=== PATIENT | female | born 1970 | race Caucasian/White ===

== ENCOUNTER → 2016-08-11 | Outpatient (CLI) | payer OTHER | LOC: BMCIMAGING 09:10 | PROVIDERS: ATTEND Obstetrics & Gynecology | DX: Z12.31 Encounter for screening mammogram for malignant neoplasm of breast (principal); D25.2 Subserosal leiomyoma of uterus; Z97.5 Presence of (intrauterine) contraceptive device | CPT/HCPCS: G0202 ==

== ENCOUNTER 2018-07-26 08:17 | Observation (INO) | payer OTHER ==
--- NOTE | 2018-07-25 18:27 | GHP ---
[f rep st] PREOP HISTORY AND PHYSICAL DATE OF ADMISSION: 07/26/2018 History and physical for tomorrow, 07/26/2018. Janell Muñoz is a 47-year-old female who presents with left knee arthritis. She has tricompartment oste oarthritis, most severe in the lateral compartment which is [id number]. In summary, she has used o ral antiinflammatory meds, she has done extensive physical therapy, she has had a steroid injection a s well as viscosupplementation series. She has used an kiln car unloader brace, she has had a knee arthroscop y and chondroplasty and debridement. Currently she has significant limitations of activities, she obrien s pain and swelling with weightbearing. She has some limitation of motion and gait abnormality. She has significant radiographic changes and this is confirmed with an MRI study as well. She has bone- to-bone in the lateral compartment and in the medial and patellofemoral compartments. Has degenerati ve changes as well. She knows that she is relatively young for knee replacement, but she has really exhausted all other measures of management to the point where she needs a reconstructive procedure. She wishes to proceed with a left total knee arthroplasty. PAST MEDICAL HISTORY: Significant for no medical problems. Orthopedically, she has had a left hip r eplacement. She has had a right shoulder rotator cuff repair. She has had a right knee ACL reconstr uction and a left knee arthroscopy. ALLERGIES: She has no known drug allergies. MEDICATIONS: She uses ibuprofen on a p.r.n. basis and Qsymia 3.75 mg-23 mg extended release. She is a nonsmoker. REVIEW OF SYSTEMS: Negative for cardiopulmonary disease. PHYSICAL EXAMINATION: GENERAL: Janell Muñoz is a well-developed, well-nourished female in no apparent distress. HEAD AND NECK: Normocephalic, atraumatic. CHEST: Clear. CARDIOVASCULAR: Regular rate and rhythm. ABDOMEN: Soft. NEUROLOGIC: She is alert and oriented x3. MUSCULOSKELETAL: Her left knee shows increased valgus alignment compared to the opposite side, and she lacks a couple of degree s of full extension. She has 120 degrees of flexion. She has a small effusion and she has tendernes s along the lateral patellar facet and the lateral joint line, ligamentously stable. IMPRESSION: Left knee osteoarthritis. PLAN: Left total knee arthroplasty. The benefits and risks of surgery have been reviewed. She unde rstands that the risks include infection, damage to blood vessel or nerve, failure or loosening of co mponents, blood clot in the leg or lungs, bleeding, and need for transfusion, and we have reviewed pa in management options as well as the rigorous nature of the rehabilitation. She has signed a consent form and wishes to proceed. At a relatively young age for total knee replacement, she understands t hat she has a higher risk for needing a revision of the joint in her lifetime. /[id number]/MODL
[~2018-07-26 08:17] MED LIST: POVIDONE-IODINE 20 ML in SODIUM CL IRRIG SOLUTION 500 ML IRR ONE; ROPIVACAINE 0.2% 80 MG, EPINEPHrine 0.2 MG, KETOROLAC TROMETHAMINE 30 MG in SYRINGE 0 ML IU ONE; TRANEXAMIC ACID 1,000 MG in NS 100 ML IV ONE; ceFAZolin 1 GM/5 ML SYR ONE
[2018-07-26] MEDS ORDERED: ACETAMINOPHEN 325 MG TAB PO ONE (08:34)
[2018-07-26] MEDS ORDERED: ONDANSETRON 4 MG/2 ML VIAL IVP ONE (08:34)
[2018-07-26] MEDS ORDERED: GABAPENTIN 300 MG CAP PO ONE (08:34)
[2018-07-26] MEDS ORDERED: ceFAZolin 2 GM/DEXTROSE 100 ML IV ONE (08:34)
[2018-07-26] MEDS ORDERED: DEXAMETHASONE 4 MG/ML VIAL IVP ONE (08:34)
[2018-07-26] MEDS ORDERED: FAMOTIDINE 20 MG TAB PO ONE (08:34)
[2018-07-26] MEDS ORDERED: MIDAZOLAM 2 MG/2 ML VIAL IVP ONE ×2 (08:37→09:39)
[2018-07-26] MEDS ORDERED: LR 1,000 ML IV ONE (08:38)
--- NOTE | 2018-07-26 09:39 | PDANEPAE ---
ANE Past Medical History - Cardiovascular History Hx Hypertension: No Hx Arrhythmias: No Hx Chest Pain: No Hx Coronary Artery / Peripheral Vascular Disease: No Hx CHF / Valvular Disease: No Hx Palpitations: No - Pulmonary History Hx COPD: No Hx Asthma/Reactive Airway Disease: No Hx Recent Upper Respiratory Infection: No Hx Oxygen in Use at Home: No Hx Sleep Apnea: No Sleep Apnea Screening Result - Last Documented: Negative - Neurologic History Hx Cerebrovascular Accident: No Hx Seizures: No Hx Dementia: No - Endocrine History Hx Diabetes: No Hypothyroid: No Hyperthyroid: No Obesity: no - Renal History Hx Renal Disorders: No - Liver History Hx Hepatic Disorders: No - Neurological & Psychiatric Hx Hx Neurological and Psychiatric Disorders: No - Cancer History Hx Cancer: No - Congenital Disorder History Hx Congenital Disorders: No - GI History GERD: no Hx Gastrointestinal Disorders: No - Other Health History Other Health History: NONE - Chronic Pain History Chronic Pain: Yes (RIGHT HIP) - Surgical History Prior Surgeries: KNEE SCOPE ACL RECONSTRUCTION. ROTOCUFF RECONSTRUCTION. L MAGO ANE Review of Systems Review of Systems: - Exercise capacity Exercise capacity: >=4 METS, limited by disability METS (RN): 5 METS ANE Patient History - Allergies Allergies/Adverse Reactions: No Known Allergies Allergy (Verified 07/05/18 11:49) - Home Medications Home Medications: Glucosamine/Chondroitin [Glucosamine/Chondroitin (*)] 1 each PO DAILY 07/05/18 [ Last Taken 07/19/18] Herbals/Supplements -Info Only 1 ea PO DAILY 07/05/18 [Last Taken 07/19/18] Ibuprofen [Motrin (*)] 200 mg PO DAILY PRN 07/05/18 [Last Taken 07/19/18] [place]-3 Fatty Acids [Fish Oil 1000 mg (*)] 1,000 mg PO DAILY 07/05/18 [Last Taken 07/25/18] Phentermine/Topiramate [Qsymia 3.75 mg-23 mg Capsule] 1 each PO DAILY 07/05/18 [ Last Taken 07/21/18] - NPO status NPO Since - Liquids (Date): 07/26/18 NPO Since - Liquids (Time): 00:01 NPO Since - Solids (Date): 07/26/18 NPO Since - Solids (Time): 00:01 - Anes Hx Anes Hx: no prior problems - Smoking Hx Smoking Status: Never smoked - Alcohol Use Alcohol Use: Occasionally - Family Anes Hx Family Anes Hx: neg - N/A Family Hx Anesthesia Complications: NONE ANE Labs/Vital Signs - Vital Signs Blood Pressure: 124/68 Heart Rate: 52 Respiratory Rate: 16 O2 Sat (%): 96 Height: 157.48 cm Weight: 68.039 kg ANE Physical Exam - Airway Neck exam: FROM Mallampati Score: Class 2 Mouth exam: normal dental/mouth exam - Pulmonary Pulmonary: no respiratory distress, no rales or rhonchi, clear to auscultation - Cardiovascular Cardiovascular: regular rate and rhythym, no murmur, rub, or gallop - ASA Status ASA Status: II ANE Anesthesia Plan Anesthesia Plan: MAC, spinal Regional Anesthesia: single shot NB, adductor canal FNB Total IV Anesthesia: No
--- NOTE | 2018-07-26 10:19 | PDHPUP ---
History & Physical Update H&P update statement: This history and physical update is based on an assessment of the patient which was completed after admission or registration (within 24 hours), but prior to the surgery/procedure. no change H&P update: H&P reviewed & patient examined (no change)
[2018-07-26] MEDS ORDERED: PROPOFOL/EMULSION 500 MG/50 ML BOTTLE IV ONE (10:43)
[2018-07-26] MEDS ORDERED: fentaNYL 100 MCG/2 ML INJ ONE (10:43)
[2018-07-26] MEDS ORDERED: BUPIVACAINE/DEXTROSE 7.5MG/ML 2 ML SPINAL AMP SP ONE (10:43)
[2018-07-26] MEDS ORDERED: LIDOCAINE 2% 5 ML SDV ONE (10:55)
[2018-07-26] MEDS ORDERED: PHENYLEPHRINE HCL 100 MCG/ML SYR IVP PRN (12:16)
[2018-07-26] MEDS ORDERED: NALOXONE HCL 0.4 MG/ML INJ IVP PRN (12:16)
[2018-07-26] MEDS ORDERED: fentaNYL 100 MCG/2 ML INJ IVP PRN (12:16)
[2018-07-26] MEDS ORDERED: HYDROCODONE/APAP 5/325 TAB PO PRN (12:16)
[2018-07-26] MEDS ORDERED: LR 500 ML IV PRN (12:16)
[2018-07-26] MEDS ORDERED: ONDANSETRON 4 MG/2 ML VIAL IVP PRN ×2 (12:16→12:58)
[2018-07-26] MEDS ORDERED: PROMETHAZINE HCL 25 MG/ML INJ IVP PRN ×2 (12:16→12:58)
[2018-07-26] MEDS ORDERED: ACETAMINOPHEN 500 MG TAB PO PRN (12:16)
[2018-07-26] MEDS ORDERED: oxyCODONE IR 5 MG TAB PO PRN (12:16)
[2018-07-26] MEDS ORDERED: ROPIVACAINE HCL 150 MG/30 ML INJ ONE (12:24)
[2018-07-26] MEDS ORDERED: PROMETHAZINE HCL 25 MG SUPPR PR PRN (12:58)
[2018-07-26] MEDS ORDERED: LACTULOSE 20 GM/30 ML UDCUP PO PRN (12:58)
[2018-07-26] MEDS ORDERED: diphenhydrAMINE 25 MG CAP PO PRN (12:58)
[2018-07-26] MEDS ORDERED: MAGNESIUM HYDROXIDE 30 ML UDCUP PO PRN (12:58)
[2018-07-26] MEDS ORDERED: METOCLOPRAMIDE 10 MG/2 ML VIAL IVP PRN (12:58)
[2018-07-26] MEDS ORDERED: DIPHENOXYLATE/ATROPINE LOMOTIL 1 TAB PO PRN (12:58)
[2018-07-26] MEDS ORDERED: KETOROLAC 15 MG/1 ML SDV IVP ONE (12:58)
[2018-07-26] MEDS ORDERED: POLYETHYLENE GLYCOL 3350 17 GM PKT PO PRN (12:58)
[2018-07-26] MEDS ORDERED: CYCLOBENZAPRINE 10 MG TAB PO PRN (12:58)
[2018-07-26] MEDS ORDERED: TEMAZEPAM 15 MG CAP PO PRN (12:58)
[2018-07-26] MEDS ORDERED: ONDANSETRON DISINTEGRATING 4 MG TAB PO PRN (12:58)
[2018-07-26] MEDS ORDERED: BISACODYL 10 MG SUPP PR PRN (12:58)
[2018-07-26] MEDS ORDERED: LR 1,000 ML IV SCH (13:00)
--- NOTE | 2018-07-26 14:23 | POSTANESTH ---
Post Anesthetic Evaluation Cardiovascular Status: Normal, Stable Respiratory Status: Normal, Stable Level of Consciousness/Mental Status: Can Participate in Eval Pain Control: Adequate, Prn Tx Ordered Nausea/Vomiting Control: Adequate, Prn Tx Ordered Complications Possibly Related to Anesthesia: None Noted
[2018-07-26] MEDS: ACETAMINOPHEN 325 MG TAB PO SCH (18:23)
[2018-07-26] MEDS: oxyCODONE IR 5 MG TAB PO PRN (18:25)
[2018-07-26] MEDS: ceFAZolin 2 GM/DEXTROSE 100 ML IV SCH (18:26)
--- NOTE | 2018-07-26 20:07 | GOP ---
[f rep st] OPERATIVE REPORT DATE OF OPERATION: SURGEON: Steven Jeffers MD HR COORDINATOR: . My retail administrative assistant was a medical necessity for this knee replacement, to provide leg positioning and soft tissue retraction. ANESTHESIA: [facility], LSA ANESTHESIOLOGIST: Felicia Garcia DO PREOPERATIVE DIAGNOSIS: Left knee osteoarthritis. POSTOPERATIVE DIAGNOSIS: Left knee osteoarthritis. PROCEDURE PERFORMED: Left total knee arthroplasty. FINDINGS: SPECIMENS: Include excised bone. ESTIMATED BLOOD LOSS: Minimal. INDICATIONS: The patient is a 47-year-old female who has significant and severe left knee tricompart ment osteoarthritis, most severely so, [id number] in the lateral compartment. As detailed in the h istory and physical, she has tried a full spectrum of non-operative treatments and continues to have significant limitations and pain. A left total knee arthroplasty is planned. DESCRIPTION OF PROCEDURE: The patient was taken to the operating room, and while seated on the OR ta ble, Dr. Garcia provided a spinal anesthetic. She was then placed supine, received IV sedation, 2 g of IV Ancef, and tranexamic acid. A tourniquet was fit high on the left thigh. Left leg was pr epped and draped in the usual fashion. The limb was elevated, exsanguinated, the tourniquet inflated to 275 mmHg. I made a longitudinal incision in the midline, dissected through subcutaneous tissue, exposed the extensor mechanism and used a medial parapatellar arthrotomy. The patella was inverted. I measured its size and thickness. I removed 9 mm of cartilage and bone, I sized the bone surface t o a 32, drilled appropriate PEG holes and the component and the minto patella reconstituted the appr opriate patellar thickness. The patella was inverted. The knee was flexed. I drilled a leadite man hole in the distal femur. I used an intramedullary alignment jig. She was in quite a bit of valgus align ment, probably a good 8-10 degrees. For easier tissue balancing and to match her opposite knee. I u sed a 6-degree valgus cut, a +2 cut to accommodate her slight flexion contracture, and I sized the di stal femur at a 4. I applied a cutting block and made the appropriate anterior, posterior, and chamf er cuts, and notch cuts to this bi-cruciate stabilized knee. I used an extramedullary jig for the ti slim. I adjusted the posterior slope and rotation, depth of cut, made my tibial cut, and sized the ti bial surface at a 3. I did trial reductions, marking the tibia and dialed in my rotation. I finishe d the tibial prep with a cruciate punch. All the surfaces were jet lavaged with irrigation. All com ponents were cemented, femur first, then the tibia, then patella. Femur is a size 4, tibia size 3, p atella 32. I did trial reductions. I found a 9 mm articular insert allowed full extension, appropri ate stability, excellent rollback in flexion. The patella tracked appropriately. I irrigated the iván int with antibiotic solution, including Betadine rinse. I closed the arthrotomy with interrupted fig [id number] sutures of 0 [place], subcutaneous tissue with 3-0 Monocryl, and the skin with a runni ng Quill suture in the subcuticular space. I used tissue glue, Steri-Strips, 4x4s, sterile Webril, T ED stocking, and an Vin wrap to finish the dressing. Tourniquet time was 70 minutes. DRAINS: None. COUNTS: All counts were correct. DISPOSITION: The patient was taken in stable condition to recovery. SUMMARY OF COMPONENTS: This is a [employer] knee, bi-cruciate stabilized Oxinium femur , cross-linked polyethylene. All components cemented, femur size 4, tibia size 3, patella 32, articu lar tray 9 mm. /[id number]/MODL
[2018-07-26] MEDS: ASPIRIN 81 MG CHEWABLE TAB PO SCH (21:09)
[2018-07-26] MEDS: FAMOTIDINE 20 MG TAB PO SCH (21:09)
[2018-07-26] MEDS: SENNOSIDES/DOCUSATE SODIUM TAB PO SCH (21:09)
[2018-07-27] MEDS: ACETAMINOPHEN 325 MG TAB PO SCH ×3 (01:21→13:15)
[2018-07-27] MEDS: oxyCODONE IR 5 MG TAB PO PRN ×3 (01:22→13:15)
[2018-07-27] MEDS: ceFAZolin 2 GM/DEXTROSE 100 ML IV SCH (02:16)
[2018-07-27] MEDS ORDERED: NS 500 ML IV ONE (06:30)
--- NOTE | 2018-07-27 08:05 | SOAPPROG ---
SOAP Progress Note Assessment/Plan: Assessment: 07/27/18 POD#1 L TKA pain controlled, xray fine Plan: 07/27/18 08:03 PT and home, oxy, tyl, celebrex asa Objective: Vital Signs Temp Pulse Resp BP Pulse Ox 36.9 C 55 L 16 93/58 L 96 07/27/18 04:00 07/27/18 04:00 07/27/18 04:00 07/27/18 06:30 07/27/18 04:00 Laboratory Results 07/27/18 04:35 07/26/18 07/27/18 07/28/18 05:59 05:59 05:59 Intake Total 2905 Output Total 3325 Balance -420 ICD10 Worksheet Patient Problems: Problems Problem Status Onset Osteoarthritis of left knee Acute - ICD10 Problem Qualifiers (1) Osteoarthritis of left knee
[2018-07-27] MEDS: FAMOTIDINE 20 MG TAB PO SCH (08:29)
[2018-07-27] MEDS: SENNOSIDES/DOCUSATE SODIUM TAB PO SCH (08:29)
[2018-07-27] MEDS: ASPIRIN 81 MG CHEWABLE TAB PO SCH (08:29)
[2018-07-27] MEDS ORDERED: PHENTERMINE PO SCH (09:00)
[2018-07-27] MEDS ORDERED: OMEGA-3 FATTY ACIDS 1,000 MG CAP PO SCH (09:00)
[2018-07-27] MEDS ORDERED: GLUCOSAMINE/CHONDROITIN CAP PO SCH (09:00)
[2018-07-27] MEDS ORDERED: Herbals/Supplements -Info Only PO SCH (09:00)
[2018-07-27] MEDS ORDERED: TOPIRAMATE PO SCH (09:00)
[2018-07-27 12:22] VITALS: BP 96/59
--- NOTE | 2018-07-27 13:59 | ASMTLACE ---
MARIANELAE Length of stay for Answers: 2 days current admission Acuity / Level of Answers: No Care: Did the patient have an inpatient admission? Comorbidities - select Answers: Opioid dependence all that apply / Chronic pain # of Emergency department Answers: 0 visits in the last 6 months Score: 6 Date Signed: 07/27/2018 01:56 PM Electronically Signed By:AVILA Bennett
--- NOTE | 2018-07-27 14:00 | ASMTCMCOM ---
CM Note CM Note Notes: Pt had planned knee surgery, resides with spouse. PT rec outpatient. No CM d/c needs identified. Date Signed: 07/27/2018 01:57 PM Electronically Signed By:AVILA Bennett
== END 2018-07-27 15:42 | disposition home or self-care (01) ==
LOC: F3N 08:17
PROVIDERS: ADMIT Orthopaedic Surgery; ATTEND Orthopaedic Surgery
PROC: 0SRD0J9 Replacement of Left Knee Joint with Synthetic Substitute, Cemented, Open Approach (ICD-10-PCS; principal; 2018-07-26 09:45)
DX: M17.12 Unilateral primary osteoarthritis, left knee (principal)
CPT/HCPCS: 27447; 73560; 97110; 97116; 97161; 97165; 97530; 97535; G0378; C1713; J0171; J0690; J1100; J1885; J2250; J2405; J2704; J2795; J3010